=== PATIENT | female | born 1955 | race Caucasian/White ===

== ENCOUNTER 2019-05-01 21:27 | Observation (INO) | payer MEDICARE, BC ==
[~2019-05-01] VITALS: Ht 162.6 cm; Wt 88.1 kg
[2019-05-01 22:15] LABS: BASOPHILS ABSOLUTE AUTO 0.02 K/mm3 (0.00-0.23); BASOPHILS PERCENT AUTO 0 % (0-2); EOSINOPHILS ABSOLUTE AUTO 0.01 K/mm3 (0.00-0.68); EOSINOPHILS PERCENT AUTO 0 % (0-6); Hematocrit 41.5 % (33.0-51.0); IMMATURE GRAN ABSOLUTE AUTO 0.06 K/mm3 (0.00-0.10); IMMATURE GRAN PERCENT AUTO 1 % (0-1); LYMPHOCYTES ABSOLUTE AUTO 0.63 K/mm3 (0.84-5.20); LYMPHOCYTES PERCENT AUTO 5 % (21-46); MONOCYTES ABSOLUTE AUTO 0.32 K/mm3 (0.16-1.47); MONOCYTES PERCENT AUTO 3 % (4-13); Mean Corpuscular HGB 32.1 pg (26.0-34.0); Mean Corpuscular HGB Conc 33.7 g/dL (31.5-36.5); Mean Corpuscular Volume 95 fL (80-100); Mean Platelet Volume 10.2 fL (9.1-12.4); NEUTROPHILS ABSOLUTE AUTO 11.21 K/mm3 (1.96-9.15); NEUTROPHILS PERCENT AUTO 92 % (41-73); Platelet Count 161 K/mm3 (150-400); RDW Coefficient Variation 12.7 % (11.7-14.2); RDW Standard Deviation 45.1 fL (35.1-46.3); Red Blood Cell Count 4.36 M/mm3 (3.80-5.20); White Blood Cell Count 12.25 K/mm3 (4.00-11.30)
[2019-05-01 22:37] LABS: Albumin, Blood 3.8 g/dL (3.4-5.0); Albumin/Globulin Ratio 1.1 (0.8-1.8); Bun/Creatinine Ratio 16.8 (12.0-20.0); Creatinine, Blood 1.07 mg/dL (0.40-1.00); Globulin, Blood 3.4 g/dL (2.2-4.0); Potassium, Blood 3.8 mmol/L (3.5-5.5); Total Protein, Blood 7.2 g/dL (6.4-8.2)
[2019-05-02 00:07] LABS: Source, Urine Clean Catch
[2019-05-02 00:32] LABS: Bilirubin, Urine Neg (Neg); Blood, Urine 1+ (Neg); Glucose Qualitative, Urine Neg (Neg); Ketones, Urine Neg (Neg); Leukocyte Esterase, Urine 2+ (Neg); Nitrite, Urine Neg (Neg); Protein, Urine Neg (Neg); Specific Gravity, Urine 1.015 (1.003-1.022); Urobilinogen, Urine NORM (Normal)
[2019-05-02 00:48] LABS: Appearance, Urine Hazy (Clear); Color, Urine Yellow (P-Yellow)
[2019-05-02 00:49] LABS: Bacteria Many /hpf; Red Blood Cells, Urine 0-2 /hpf (0-2); Squamous Epithelial Cells Mod /hpf (Few)
[2019-05-02] MEDS ORDERED: TOPI50 PO (01:08)
[2019-05-02] MEDS ORDERED: LEVSOD112 PO (01:08)
[2019-05-02] MEDS ORDERED: VERA80 PO (01:09)
--- NOTE | 2019-05-02 04:52 | NUR ---
PT ADMITTED FROM ED AT APPROX 0220 FOR APPENDICITIS. A&O X4. VS WNL. DENIES PAIN AND N/V. NPO WITH FLUIDS INFUSING. PLAN FOR SURGERY LATER TODAY. INDEPENDENT IN ROOM.
--- NOTE | 2019-05-02 07:35 | NUR ---
dr nelson by to see pt plan for lap appy this am pt npo min abd pain pt stated she had a lot of n/v and her abd was hard and painful no longer soft to the touch
--- NOTE | 2019-05-02 08:21 | NUR ---
pt cheeks red rechecked temp 101.5 iv sl day surg called to come and get pt pt oob to void
--- NOTE | 2019-05-02 09:04 | NUR ---
History, Chart, Medications and Allergies reviewed before start of procedure. Lungs clear T/O to Auscultation. Patient confirms NPO status and agrees with scheduled surgery. Pre-Op teaching done. Pt verbalizes understanding.
--- NOTE | 2019-05-02 09:20 | NUR ---
PT TRANSPORTED TO DAY SURG VIA [facility]
--- NOTE | 2019-05-02 11:15 | NUR ---
PT ARRIVED BACK TO ROOM 228 FROM PACU PT IS S/P LAP APPY PT MOVED INTO THE BED ON HER OWN STATED PAIN IS 4/10 OFFERED PAIN MEDS PT DECLINED NO NAUSEA CL GIVEN PT HAS SCANT AMT OF BLEEDING TO UPPER DRESSING GAUZE WITH OPSITE COVERING STERI STRIPS X3
--- NOTE | 2019-05-02 13:32 | NUR ---
PT ITCHING HIVES NOTED TO LEGS AND ARMS DR BYRNES NOTIFIED BENADRYL ORDERED
--- NOTE | 2019-05-02 16:24 | NUR ---
pt awake no rash noted to legs or arms
--- NOTE | 2019-05-02 17:42 | NUR ---
recvd report from previous RN Zora, pt sitting up in bed, a/0 x 4, denies pain, pleasant/cooperative. dinner tray provided
--- NOTE | 2019-05-03 06:49 | NUR ---
SUMMARY PT SLEPT OFF AND ON. DENIED NEED FOR PAIN MEDS. AMBULATING TO BR DESIRED. REPORTS COMFORTABLE.
--- NOTE | 2019-05-03 14:24 | NUR ---
PATIENT D/C'D HOME WITH SPOUSE AT THIS TIME. CONT TO DENY PAIN. TOLERATING PO. VOIDING. UP IN ROOM AD LIAM. PATIENT STATES UNDERSTANDING OF MEDS, WOUND CARE, ACTIVITY, WOUND CARE, ETC. NO ACUTE CHANGES OR C/O.
== END 2019-05-03 14:24 | disposition home or self-care (01) ==
LOC: ER 21:27 → SURS 21:28
PROVIDERS: Emergency Medicine; ADMIT Surgery
PROC: 0DTJ4ZZ Resection of Appendix, Percutaneous Endoscopic Approach (ICD-10-PCS; principal; 2019-05-02 09:30)
DX: K35.80 Unspecified acute appendicitis (principal); K38.8 Other specified diseases of appendix; I10 Essential (primary) hypertension; E03.9 Hypothyroidism, unspecified; E78.5 Hyperlipidemia, unspecified; Z79.899 Other long term (current) drug therapy
CPT/HCPCS: 36415; 74176; 80053; 81001; 83690; 85025; 87086; 87186; 87205; 88304; 93005; 93010; 96361; 96365; 99285-25; G0378; J1100; J1200; J2250; J2405; J2543; J2704; J2710; J3010; J7030; J7120